=== PATIENT | female | born 1980 | race Hispanic/Latino ===

== ENCOUNTER 2019-07-08 12:11 | Day surgery (SDC) | payer OTHER ==
[2019-07-08 13:02] VITALS: TEMP 98.2; BMI 31.8
[2019-07-08 13:31] LABS: Amnisure Test No Membranes Rupture (No Rupture)
[2019-07-08 13:32] LABS: Amnisure Internal Control QC ACCEPTABLE (ACCEPTABLE)
[2019-07-08] MEDS ORDERED: hydrALAZINE 20 MG/ML VIAL SLOW IVP PRN (13:33)
--- NOTE | 2019-07-08 13:40 | PDOC.LDHP ---
Labor and Delivery H&P Chief complaint: loss of fluid HPI: 39 G1 at 21.4 here with complaint of loss of fluid at home. She notes clear thin fluid per vagina over the past few days. She endorses movement, denies bleeding, abd pain, or cxn. Fluid is associated sexual intercourse. course has been complicated only by AMA. Current gestational age (weeks): 21 (21.4) Due date: 11/14/18 Dating criteria: last menstrual period, first trimester ultrasound Grav: 1 Para: 0 Current complications: other (ama) Abnormal US findings: No Current medications: pre- vitamins Allergies/Adverse Reactions: Allergies Allergy/AdvReac Type Severity Reaction Status Date / Time No Known Allergies Allergy Verified 07/08/19 13:22 - Physical Exam Vital signs reviewed and normal: yes General: NAD Heart: RRR Lungs: CTAB Abdomen: NTTP Extremeties: no edema - OB Labs Blood type: A RH: positive Antibody Screen: negative HIV: negative RPR: negative HEPSAg: negative Rubella: immune - Assessment 2nd trimester G1 with vaginal discharge - Plan -: - Amnisure is negative. VP3, UA are pending. Plan to treat infection if indicated. - FHT are 140 on doppler - No cxn - discharge home with return precautions,. Follow up at [facility] as previously scheduled Addendum - Attending - Attending Attestation Date/Time: 07/08/192019 I personally discussed the management of the patient with Dr. Duran. I agree with the History, Examination, Assessment and Plan documented above.
[2019-07-08 17:13] LABS: Bacteria/HPF None Seen HPF (None Seen); Bilirubin Negative (Negative); Blood, Urine Negative (Negative); Clarity Clear (Clear); Glucose, Urine (Dipstick) Normal (Negative); Leukocyte Negative Leu/uL (Negative); Nitrite Negative (Negative); Protein, Urine (Dipstick) Negative (Neg-Trace); RBC/HPF 0-3 HPF (0-3); Squamous Epithelial 0-3 HPF (0-3); Transitional Epithelial 0-3 HPF (None Seen); Urobilinogen Normal mg/dL (Less than 2); WBC/HPF 0-3 HPF (0-3)
[2019-07-08 17:41] LABS: Urine Culture Reflex No No
== END 2019-07-08 14:30 | disposition home or self-care (01) ==
LOC: L&D/OP 12:11
PROVIDERS: ATTEND Family Medicine
DX: O99.89 Other specified diseases and conditions complicating pregnancy, childbirth and the puerperium (principal); N89.8 Other specified noninflammatory disorders of vagina; O09.512 Supervision of elderly primigravida, second trimester; Z3A.21 21 weeks gestation of pregnancy; Z79.82 Long term (current) use of aspirin
CPT/HCPCS: 81001; 84112; 87480; 87510; 87660

== ENCOUNTER 2019-10-25 08:10 | Inpatient (IN) | payer MEDICAID, OTHER, SELFPAY ==
--- NOTE | 2019-10-25 08:33 | PDOC.FPROB ---
FMR OB H&P: HPI - History of Present Illness Chief Complaint: IOL for gHTN Indentification: 39yo at 37.1wks by 7.3wk US History of Present Illness: 39yo at 37.1wks by 7.3wk US presents for IOL for gHTN. No BPs at home >140/ 90. Denies vaginal bleeding, LOF, contractions. Endorses FM. Primary Care Physician: Dr Yelena Wei FMR OB H&P: Current - Care : 1 Para: 0 Gestational age: 37.1wks Dating Criteria: 7.3wk US Course/Complications: LGA AMA Left Ovarian Cyst gHTN Carpal tunnel Glucose intolerance - OB Labs Blood type: A RH: positive Antibody Screen: negative HIV: negative RPR: negative HepBsAg: negative Rubella: immune Gonorrhea: negative Chlamydia: negative 1 hour gtt: 154 3 hour GTT: 79, 146, 166, 131 GBS: negative H&H: 12.3/35.4 Platelets: 255 - First Trimester Ultrasound First trimester: @7.3wks FMR OB H&P: History - Past Medical History PMH: Left ovarian cyst - Surgical History Sx History: In office nasal procedure - Social History Social History: Denies tobacco, alcohol, drug use - Family History Family History: Noncontributory FMR OB H&P: Medications - Current Home Medications: Medication Instructions Recorded Confirmed Type Aspirin [Ecotrin] 81 mg PO DAILY 07/08/19 10/25/19 History Vitamin 1 tablet PO DAILY 07/08/19 10/25/19 History Allergies/Adverse Reactions: Allergies Allergy/AdvReac Type Severity Reaction Status Date / Time No Known Allergies Allergy Verified 07/08/19 13:22 FMR OB H&P: ROS - Review of Systems General: denies: fever/chills, fatigue Eyes: denies: vision changes, double vision, scotomas, floaters Cardiovascular: denies: palpitation, edema Respiratory: denies: shortness of breath Gastrointestinal: denies: abdominal pain, nausea Genitourinary (Female): denies: vaginal discharge, vaginal bleeding, contractions Neurologic: denies: weakness, headache Integumentary: denies: rash, lesions FMR OB H&P: Vital Signs - Maternal Vital signs: Selected Entries 10/25/19 10/25/19 08:14 09:55 Temperature 99 F Pulse Rate 83 Blood Pressure 133/67 [Semi-Fowlers] Respiratory 18 Rate Oxygen Delivery Room Air Method - Heart Tones Baseline: 130 Variability: moderate Acceleration: present Deceleration: absent Category: category 1 FMR OB H&P: Physical Exam - Physical Exam General: NAD, awake, alert and oriented HEENT: normocephalic and atraumatic, MMM, conjunctiva clear, grossly normal hearing, oropharynx clear Neck: supple, trachea midline Heart: RRR, no murmurs/rubs/gallops General: CTAB, no respiratory distress Abdomen: soft, non-tender Musculoskeletal: pulses present, FROM in all four extremities, no misalignment/ asymmetry, no atrophy Neurological: no focal deficit Skin: no rash, capillary refill <2 seconds Psychiatric: intact recent and remote memory, good judgement and insight, normal mood and affect - Pelvic Exam Vulva: normal hair distribution, no lesions, no discharge SVE: c/t/h Membranes: intact Presentation: cephalic by bedside US Estimated Weight: 8 lbs FMR OB H&P: A/P Disposition: 39yo at 37.1wks by 7.3wk US presents for IOL for gHTN sIUP, IOL - s/p betamethasone x2 - SVE: c/t/h - FHTs 130 Cat 1 - Cytotec for induction gHTN - Last preE labs, Urine protein/Creatinine: 0.198 (Baseline 0.2), normal transaminases - BP 133/67 LGA infant - [place] EFW 88% --> 84% --> 94% --> 90% --> 91% --> 87% - 35.3wks EFW 3089g 87% AMA - On ASA for preE ppx. Following with MFM. ECHO WNL. Low risk NIPT Left Ovarian Cyst - Recommend removal if pt goes for C/S Carpal Tunnel - Has been wearing brace Glucose intolerance - Has been having growth scans - 6wk GTT Discussion: Date/Time: 10/25/19 0833 This H&P was discussed with Dr. Bermudez who agrees with the above documentation and plan. Addendum - Attending - Attending Attestation Date/Time: 10/25/19 1000 I personally evaluated the patient and discussed the management with Dr. Wei I agree with the History, Examination, Assessment and Plan documented above with any addition or exceptions noted below. mIOL for gHTN at 37.1 wk per MFM recommendations. s/p betamethasone x2 doses last week. BP WNL today. C/T/H. cytotec for IOL. monitor BP and mag if severe features. Has hx of left ovarian cyst. if LTCS indicated, will consult [facility] [employer] [facility] for removal. otherwise expectant management.
[2019-10-25] MEDS ORDERED: Promethazine HCl 25 MG/ML VIAL IM PRN (08:34)
[2019-10-25] MEDS ORDERED: Lidocaine 1% (PF) 30 ML VIAL SC PRN (08:34)
[2019-10-25] MEDS ORDERED: NS / Oxytocin 40 units/1000ml 1,000 ML IV PRN (08:34)
[2019-10-25] MEDS ORDERED: Ondansetron PF 4 MG/2 ML Vial IVP PRN (08:34)
[2019-10-25] MEDS ORDERED: hydrALAZINE 20 MG/ML VIAL SLOW IVP PRN (08:34)
[2019-10-25 08:43] VITALS: BMI 33.8
[2019-10-25] MEDS ORDERED: Misoprostol 100 MCG TAB VAG SCH (08:45)
[2019-10-25] MEDS: Lactated Ringer's 1,000 ML IV SCH ×2 (09:21→17:19)
[2019-10-25] MEDS ORDERED: Misoprostol 100 MCG TAB ONE (09:27)
[2019-10-25] MEDS: Misoprostol 100 MCG TAB PO SCH ×2 (09:34→13:56)
[2019-10-25 09:52] LABS: Hemoglobin 12.3 g/dL (12.0-16.0); Mean Corpuscular HGB CONC 35.4 g/dL (32.0-36.0); Mean Corpuscular Hemoglobin 32.3 pg (27.0-31.0); Mean Corpuscular Volume 91.2 fL (78.0-98.0); Mean Platelet Volume 8.3 fL (7.4-10.4); Platelet Count 247 thou/uL (130-400); RBC Distribution Width 12.3 % (11.5-14.5); White Blood Cell (WBC) Count 8.8 thou/uL (4.8-10.8)
[2019-10-25 10:31] LABS: Syphilis Antibody Nonreactive (Nonreactive); Syphilis Antibody Index 0.04 S/CO (<1.00 Non-Reactive)
[2019-10-25 10:32] LABS: HBSAg Index 0.22 S/CO (0-0.99); Hep B Surf Ag Non-Reactive S/CO (NonReactive)
[2019-10-25] MEDS ORDERED: Milk Of Magnesia 30 ML UDCUP PO PRN (10:51)
[2019-10-25] MEDS ORDERED: Docusate 100 MG CAP PO PRN (10:51)
[2019-10-25] MEDS ORDERED: Polyethylene Glycol 3350 17 GM Packet PO PRN (10:51)
--- NOTE | 2019-10-25 14:04 | PDOC.LDPN ---
Labor & Delivery Progress Note - Subjective Subjective: comfortable, no concerns - Objective Vital signs reviewed and normal: yes General: NAD, resting SVE: /-3, midposition, moderately firm Dilation: 1 Effacement: 50% Station: -3 FHT: category 1, variability present (moderate, + accels) [place] contractions every: 2-5 min - Assessment (1) Term Code(s): Z34.90 - ENCNTR FOR SUPRVSN OF NORMAL , UNSP, UNSP TRIMESTER Current Visit: Yes Status: Acute Plan: continue plan of care -: /-3 2nd dose of PO cytotec given Daniels score of 4 continue to monitor continuous EFM/toco discussed R/B/A of induction and w/ family Clear liquid diet recheck in 3-4 hours
--- NOTE | 2019-10-25 17:34 | PDOC.LDPN ---
Labor & Delivery Progress Note - Subjective Subjective: comfortable, no concerns - Objective Vital signs reviewed and normal: yes General: NAD, resting SVE: 2/75/-2, soft mid position FHT: category 1, variability present (moderate, multiple accels) - Assessment (1) Term Code(s): Z34.90 - ENCNTR FOR SUPRVSN OF NORMAL , UNSP, UNSP TRIMESTER Current Visit: Yes Status: Acute Plan: continue plan of care, pitocin for augmentation -: continue expectant mgmt Daniels of 7. Will begin pitocin. Verified w/ Dr. Camarillo. pt desires epidural as she progresses. Is comfortable now.
[2019-10-25] MEDS: NS w/ Oxytocin 10 units 500 ML IV SCH (17:57)
--- NOTE | 2019-10-25 22:06 | PDOC.LDPN ---
Labor & Delivery Progress Note - Subjective Subjective: comfortable, vaginal pressure - Objective Vital signs reviewed and normal: yes General: NAD, breathing through contractions Dilation: 2 cm Effacement: 75% Station: -2 FHT: category 1 [place] contractions every: q 3-4 mins Plan: continue plan of care, pitocin for augmentation -: Pt is a 39 yo at 37 wks by 7.3 wk sono who presents for IOL, gHTN: # Term , IOL, LGA Infant 2 cm/50%/-2 No change from previous check. Continue pitocin, currently at 4, previously received 2 doses of cytotec. Pt is appreciating contractions in pelvis. No ROM , vaginal bleeding, discharge. GBS negative. - Recheck in 2 hours
--- NOTE | 2019-10-25 22:08 | PDOC.LDPN ---
Labor & Delivery Progress Note - Subjective Subjective: painful contractions, vaginal pressure, no concerns - Objective Vital signs reviewed and normal: yes General: resting, breathing through contractions Dilation: 2 cm Effacement: 50% Station: -2 FHT: category 1 [place] contractions every: q4mins Plan: continue plan of care, pitocin for augmentation -: Pt is a 39 yo at 37 wks by 7.3 wk sono who presents for IOL, gHTN: # Term , IOL, LGA Infant 2 cm/50%/-2 No change from previous check. Continue pitocin, currently at 6, previously received 2 doses of cytotec. Pt is appreciating contractions in pelvis. No ROM , vaginal bleeding, discharge. GBS negative. - Recheck in 2 hours
--- NOTE | 2019-10-26 01:37 | PDOC.LDPN ---
Labor & Delivery Progress Note - Subjective Subjective: comfortable, vaginal pressure, no concerns - Objective Vital signs reviewed and normal: yes General: NAD, resting Uterine fundus: non tender Dilation: 2 cm Effacement: 50% Station: -2 FHT: category 1 [place] contractions every: q3-4min Plan: continue plan of care, pitocin for augmentation -: Pt is a 39 yo at 37 wks by 7.3 wk sono who presents for IOL, gHTN: # Term , IOL, LGA Infant 2 cm/50%/-2 No change from previous check. D/C pitocin, have pt walk. Will recheck and consider a cytotec placement. Pt is appreciating contractions in pelvis. No ROM, vaginal bleeding, discharge. GBS negative.
--- NOTE | 2019-10-26 01:37 | PDOC.LDPN ---
Labor & Delivery Progress Note - Subjective Subjective: vaginal pressure - Objective General: NAD, resting, breathing through contractions Dilation: 2 cm Effacement: 50% Station: -2 FHT: category 1 [place] contractions every: q3 mins Plan: continue plan of care, pitocin for augmentation -: Pt is a 39 yo at 37 wks by 7.3 wk sono who presents for IOL, gHTN: # Term , IOL, LGA Infant 2 cm/50%/-2 No change from previous check. Continue pitocin, previously received 2 doses of cytotec. Pt is appreciating contractions in pelvis. No ROM, vaginal bleeding, discharge. GBS negative. - Recheck in 2 hours - Consider d/c pitocin, administer cytotec if no change on 0 check
[2019-10-26] MEDS: NS w/ Oxytocin 10 units 500 ML IV SCH ×2 (03:31→16:50)
[2019-10-26] MEDS: Lactated Ringer's 1,000 ML IV SCH ×3 (03:31→16:37)
[2019-10-26] MEDS: Misoprostol 100 MCG TAB PO SCH ×2 (03:52→11:22)
--- NOTE | 2019-10-26 10:10 | PDOC.LDPN ---
Labor & Delivery Progress Note - Subjective Subjective: comfortable, no concerns - Objective Vital signs reviewed and normal: yes General: NAD, resting SVE: 2/50/-2 Dilation: 2 Effacement: 50% Station: -2 FHT: category 1, variability present (moderate, accels ) - Assessment (1) Term Code(s): Z34.90 - ENCNTR FOR SUPRVSN OF NORMAL , UNSP, UNSP TRIMESTER Current Visit: Yes Status: Acute Plan: continue plan of care -: medications stopped due to frequent contractions overnight balloon placed, pt has not made change from 2 cm overnight Will wait until balloons fall out. Continue expectant mgmt. Addendum - Attending - Attending Attestation Date/Time: 10/26/19 1123 I personally evaluated the patient and discussed the management with Dr. Barkley I agree with the History, Examination, Assessment and Plan documented above with any addition or exceptions noted below. recheck 4 hrs. balloon in at 1000.
[2019-10-26] MEDS ORDERED: Butorphanol Tartrate 1 MG/ML VIAL SLOW IVP PRN (11:16)
[2019-10-26] MEDS ORDERED: Butorphanol Tartrate 1 MG/ML VIAL ONE (11:17)
[2019-10-26] MEDS: Misoprostol 100 MCG TAB VAG SCH (11:22)
[2019-10-26] MEDS ORDERED: Fentanyl 4 mcg/Bup 0.1% Cadd 100 ML ONE ×2 (12:55→21:48)
[2019-10-26] MEDS: Fentanyl 4 mcg/Bupivacaine 0.1% Cassette 100 ML EPIDURAL SCH ×2 (13:00→21:53)
[2019-10-26] MEDS ORDERED: Naloxone HCl 0.4 mg/ml Vial IVP PRN ×2 (13:35)
[2019-10-26] MEDS ORDERED: ePHEDrine/0.9% NaCl/PF SYRINGE 50 mg/10 ml SLOW IVP PRN (13:35)
[2019-10-26] MEDS ORDERED: Promethazine HCl 25 MG/ML VIAL IM PRN (13:35)
[2019-10-26] MEDS ORDERED: Lactated Ringer's 500 ML IV PRN (13:35)
[2019-10-26] MEDS ORDERED: Ondansetron PF 4 MG/2 ML Vial IVP PRN (13:35)
[2019-10-26] MEDS ORDERED: diphenhydrAMINE 50 MG/ML VIAL IVP PRN (13:35)
--- NOTE | 2019-10-26 13:36 | PDOC.LDPN ---
Labor & Delivery Progress Note - Subjective Subjective: painful contractions, vaginal pressure - Objective Vital signs reviewed and normal: yes Abnormal vital signs: 1240 BP 163/85, most recent 1332 120/69 General: breathing through contractions SVE: balloon in place FHT: category 1 [place] contractions every: q1-2min Plan: continue plan of care -: 39yo at 37.0w by 7.3w US here for mIOL for gHTN and LGA fetus. Pt with painful ctx q1-2min. Currently getting epidural for pain management. Cooks balloon in place, continue q4h checks. Did have one severe range BP, and others that were elevated to 140's, most recent 120/69. Will get CBC, CMP, Urine Pro/Cr. Hydralazine prn. Will monitor closely for need for Magnesium.
[2019-10-26] MEDS ORDERED: Communication Order-Pharmacy FS PRN (13:45)
[2019-10-26 14:21] LABS: #Lymphocytes 1.5 thou/uL (1.20-3.40); #Monocytes 0.9 thou/uL (0.11-0.59); %Basophils 0.1 % (0.0-1.0); %Eosinophils 0.2 % (0.0-10.0); %Monocytes 7.6 % (0.0-10.0); %Neutrophils 79.1 % (42.0-75.0); Hemoglobin 12.8 g/dL (12.0-16.0); Mean Corpuscular Hemoglobin 31.5 pg (27.0-31.0); Mean Corpuscular Volume 92.6 fL (78.0-98.0); Mean Platelet Volume 7.8 fL (7.4-10.4); Platelet Count 249 thou/uL (130-400); RBC Distribution Width 12.4 % (11.5-14.5); Red Blood Cell (RBC) Count 4.06 mill/uL (4.20-5.40); White Blood Cell (WBC) Count 11.4 thou/uL (4.8-10.8)
[2019-10-26 14:50] LABS: ALT (SGPT) 14 U/L (8-55); AST (SGOT) 13 U/L (5-34); Albumin 3.5 g/dL (3.5-5.0); Alkaline Phosphatase 126 U/L (40-110); Anion Gap 11 mmol/L (10-20); BUN (Urea Nitrogen) 5 mg/dL (7.0-18.7); Bilirubin, Total 0.5 mg/dL (0.2-1.2); Calc. Creatinine Clearance 189 mL/min (70-130); Carbon Dioxide 24 mmol/L (22-29); Chloride 105 mmol/L (98-107); Estimated GFR-MDRD Greater than 90; Globulin 2.7 g/dL (2.4-3.5); Glucose 94 mg/dL (70-105); Potassium 3.7 mmol/L (3.5-5.1); Protein, Total 6.2 g/dL (6.0-8.3); Sodium 136 mmol/L (136-145)
[2019-10-26 16:37] LABS: Creatinine, Urine 42.98 mg/dL (47-110)
--- NOTE | 2019-10-26 16:52 | PDOC.LDPN ---
Labor & Delivery Progress Note - Subjective Subjective: comfortable - Objective Vital signs reviewed and normal: yes General: NAD, resting Uterine fundus: non tender Dilation: 3 Effacement: 75% Station: -3 FHT: category 1 (130/mod/+ accels/no decels) [place] contractions every: 3-5min -: 39yo at 37.2wk by 7.3w US here for mIOL for gHTN and LGA fetus. - Contractions have slowed down will restart pit. - Comfortable with epidural - Cooks balloon in place, continue q4h checks - SVE: /-3 Preeclampsia without severe features - Bloodwork unremarkable but Urine protein/Creatinine now 0.302 - Severe range prior x1 prior to blood draw, BPs now well controlled after epidural - Currently with headache, Tylenol PRN - If another severe range pressure will start Mg.
[2019-10-26] MEDS: Acetaminophen 325 MG TAB PO PRN (16:58)
[2019-10-26] MEDS ORDERED: Acetaminophen 500 MG TAB PO SCH (17:00)
--- NOTE | 2019-10-26 23:06 | PDOC.LDPN ---
Labor & Delivery Progress Note - Subjective Subjective: comfortable, no concerns - Objective Vital signs reviewed and normal: yes General: NAD, resting Uterine fundus: non tender Dilation: 6 cm Effacement: 50% Station: -3 FHT: category 1 [place] contractions every: q 3 mins Plan: continue plan of care, pitocin for augmentation -: Pt is a 39 yo at 37 weeks by 7.3 wk sono presented for IOL for gHTN: # IOL 2/2 gHTN Pt had one elevated BP but currently at SBP 120's. 6 cm/50/-3. Balloon removed after 12 h ours. Cat 1 strip, FHT's 130, moderate variability, accelerations present. Not feeling contractions with epidural, contractions q3mins. Pit at 6. - continue current care, recheck in 2 hours
--- NOTE | 2019-10-27 00:06 | PDOC.LDPN ---
Labor & Delivery Progress Note - Subjective Subjective: comfortable, vaginal pressure - Objective Vital signs reviewed and normal: yes General: NAD, resting Dilation: 6.5 cm Effacement: 50% Station: -2 FHT: category 1 Plan: continue plan of care, pitocin for augmentation -: Pt is a 39 yo at 37.2 weeks by 7.3 wk adrienne presented for IOL for gHTN: # IOL 2/2 gHTN Pt had one elevated BP but currently at SBP 120's. 6.5 cm/50/-3. Cat 1 strip, FHT's 130, moderate variability, accelerations present. Not feeling contractions with epidural, contractions q3mins. Pit at 10. - continue current care, recheck in 2 hours - position changes
--- NOTE | 2019-10-27 02:34 | PDOC.LDPN ---
Labor & Delivery Progress Note - Subjective Subjective: comfortable, vaginal pressure - Objective Vital signs reviewed and normal: yes (SBP 130) General: NAD, resting Uterine fundus: non tender Dilation: 6.5 cm Effacement: 50% Station: -2 FHT: category 1 [place] contractions every: q2mins Plan: continue plan of care, pitocin for augmentation -: Pt is a 39 yo at 37.2 weeks by 7.3 wk sono presented for IOL for gHTN: # IOL 2/2 gHTN SROM at 0225 10/27/18 Pt had one elevated BP but currently at SBP 130's. 6.5 cm/50/-2. Cat 1 strip, FHT's 130, moderate variability, accelerations present. Not feeling contractions with epidural, contractions q2mins. Pit at 14. - continue current care, recheck in 2 hours; consider IUPC placement - position changes Vargas Perdue, DO
[2019-10-27] MEDS ORDERED: Fentanyl 4 mcg/Bup 0.1% Cadd 100 ML ONE (05:27)
[2019-10-27] MEDS: Fentanyl 4 mcg/Bupivacaine 0.1% Cassette 100 ML EPIDURAL SCH (05:30)
--- NOTE | 2019-10-27 07:26 | PDOC.LDPN ---
Labor & Delivery Progress Note - Subjective Subjective: painful contractions - Objective Vital signs reviewed and normal: yes General: NAD Uterine fundus: palpable contractions Dilation: 9 Effacement: 90% Station: 0 FHT: category 1 [place] contractions every: q2-3 min Plan: continue plan of care -: Pt is a 39 yo at 37.2 weeks by 7.3 wk sono presented for IOL for gHTN and LGA fetus: SROM at 0225 10/27/18 Pt had one elevated BP but currently at SBP 120's. 9/90/0. Cat 1 strip, FHT's 130, moderate variability, accelerations present. Continue current care, recheck in 2 hours
--- NOTE | 2019-10-27 08:20 | PDOC.LDPN ---
Labor & Delivery Progress Note - Objective Dilation: 6 Station: 0 FHT: category 1 Plan: continue plan of care, pitocin for augmentation -: Pt is a 39 yo at 37.2 weeks by 7.3 wk sono presented for IOL for gHTN: # IOL 2/2 gHTN SROM at 0225 10/27/18 Pt had one elevated BP but currently at SBP 130's. 6 cm/80/0. Cat 1 strip. - Continue current care. Vargas Perdue DO
[2019-10-27] MEDS: Lactated Ringer's 1,000 ML IV SCH ×2 (09:35→10:23)
[2019-10-27] MEDS ORDERED: Labetalol HCl 100 MG/20 ML VIAL ONE (10:29)
[2019-10-27] MEDS ORDERED: Labetalol HCl 100 MG/20 ML VIAL SLOW IVP SCH ×2 (10:30)
[2019-10-27] MEDS ORDERED: Acetaminophen 325 MG TAB PO SCH (10:30)
[2019-10-27] MEDS ORDERED: Magnesium 2 GM/50 ML 2 GM in Premix Bag 1 BAG IVPB SCH (10:30)
--- NOTE | 2019-10-27 10:31 | PDOC.BPN ---
<Emily Barkley - Last Filed: 10/27/19 10:28> - Brief Progress Note Received page from GEETHA Vera. Pt w/ 2 severe range BP in a row. This occurred last night and Pr/Cr 0.3. Also had temp of 102.5 F. strip tachycardic 170 bpm. Pt feeling pressure, check was anterior lip/0 station. Will start Magnesium IV. Start ampicillin and gentimicin for chorioamnionitis. Give labetalol 20mg IVP now for BP. Give Tylenol 650mg PO. <Salazar Bermudez W - Last Filed: 10/27/19 10:46> - Brief Progress Note 2 severe BP. Give IV labetalol, start mag. Fever 102F w/ tachycardia. Start Amp, Gent. Will hopefully delivery soon. Case proctored by Dr. Martinez Lopez for Pre-eclampsia management.
[2019-10-27] MEDS ORDERED: Calcium Gluc 4.6 MEQ/10 ML (100 MG/ML) SLOW IVP PRN (10:32)
[2019-10-27] MEDS: Acetaminophen 325 MG TAB PO PRN (10:33)
[2019-10-27] MEDS ORDERED: Magnesium Sulfate 20 GM/WATER 500 ML BAG IVPB SCH (10:45)
[2019-10-27] MEDS ORDERED: Bupivacaine 0.25% 10 ML VIAL ONE (11:32)
[2019-10-27] MEDS: Ampicillin 2 GM in Sodium Chloride 0.9% 100 ML IVPB SCH ×3 (11:43→23:53)
[2019-10-27] MEDS ORDERED: Misoprostol 200 MCG TAB ONE (12:05)
[2019-10-27] MEDS ORDERED: Carboprost 250 MCG/ML AMP ONE (12:05)
[2019-10-27] MEDS ORDERED: Methylergonovine 0.2 MG/ML VIAL ONE (12:05)
--- NOTE | 2019-10-27 12:22 | PDOC.BPN ---
- Brief Progress Note Asked by Dr. Bermudez to marx re: pre-E with severe features 39 y/o @ 37w here for IOL 2/2 gHTN who has developed multiple severe pressures and now triple I. She is on magnesium, amp/gent, and was most recently AL. Discussed current plan with Dr. Bermudez and I agree.
[2019-10-27] MEDS: Gentamicin Sulfate 320 MG in Sodium Chloride 0.9% 100 ML IVPB SCH (12:50)
[2019-10-27] MEDS ORDERED: Milk Of Magnesia 30 ML UDCUP PO PRN (13:13)
[2019-10-27] MEDS ORDERED: Preparation H Ointment 28 GM TUBE PR PRN (13:13)
[2019-10-27] MEDS ORDERED: Bisacodyl 10 MG SUPP PR PRN (13:13)
[2019-10-27] MEDS ORDERED: Benzocaine-Menthol 82.5 ML CAN TOP PRN (13:13)
[2019-10-27] MEDS ORDERED: hydrALAZINE 20 MG/ML VIAL SLOW IVP PRN (13:13)
[2019-10-27] MEDS ORDERED: Lanolin Ointment 7 GM TUBE TOP PRN (13:13)
[2019-10-27] MEDS: NS / Oxytocin 40 units/1000ml 1,000 ML IV SCH ×2 (13:30→23:59)
--- NOTE | 2019-10-27 15:52 | PDOC.BPN ---
- Brief Progress Note Magnesium Check Pt feeling well. Asymptomatic. On Magnesium drip. DTRs: 2+ upper and lower extremities. No clonus. BP: max of 147/71 one time. UOP: 600/575/575/400 per hour over last 4 hours. Adequate. Plan: continue magnesium drip. Check in 4 hours ~20:00.
[2019-10-27] MEDS: Ibuprofen 800 MG TAB PO SCH ×2 (16:39→23:54)
--- NOTE | 2019-10-27 21:01 | OP ---
DATE OF PROCEDURE: 10/27/2019 PROCEDURE: Spontaneous vaginal delivery. DELIVERING RESIDENTS: Dr. Snider, Dr. Barkley. ATTENDING: Dr. Bermudez, present for the entirety of the delivery. ANESTHESIA: Epidural QBL: 330 mL PREOPERATIVE DIAGNOSES: 1. Term intrauterine at 37 weeks, who presents for induction of labor for gestational hypertension. 2. LGA infant. 3. Advanced maternal age. 4. Left ovarian cyst. 5. Gestational hypertension. 6. Glucose intolerance. POSTOPERATIVE DIAGNOSES: 1. Term intrauterine delivered. 2. Chorioamnionitis. 3. LGA . 4. Advanced maternal age. 5. Left ovarian cyst. 6. Gestational hypertension with superimposed preeclampsia 7. Glucose intolerance. INDICATIONS FOR PROCEDURE: A 39-year-old, G1, P0, at 37 weeks by 7.3 week ultrasound, presents for medical induction of labor for gestational hypertension. DESCRIPTION OF PROCEDURE: A 39-year-old G1, P0, at 37 weeks delivered the viable male at 12:35 on 10/27/2019. Antepartum course was complicated by intrapartum fever of 102.5 Fahrenheit, development of preeclampsia with 3 severe range blood pressures. Intrapartum ampicillin, gentamicin and magnesium were started just prior to delivery. Labetalol was given for blood pressure control and Tylenol was given for intrapartum fever. Following this antepartum course, a vigorous male was delivered over an intact perineum in occipitoanterior position. There was no nuchal cord. Anterior shoulder and remainder of the body delivered. Delayed cord clamping was performed and then cord was cut and clamped. Cord blood was collected. Placenta delivered intact in [place] presentation with a 3 vessel cord noted. Fundal massage was performed and the fundus was firm. Cervix and vagina were inspected and found to have a second-degree perineal laceration, which was repaired with 3-0 Vicryl suture in the usual fashion. There was noted to be bilateral periurethral abrasions, which were hemostatic and did not require repair. The infant went on skin to skin with mom. Apgars were 8 and 9 at 1 and 5 minutes respectively. The patient tolerated the procedure well and stayed on Labor and Delivery Unit for magnesium following recovery. Emily Barkley MD PGY1 ATTENDING ADDENDUM: I was present for delivery and agree with above documentation. patient had mIOL for gHTN. Converted to pre-eclampsia on day 1 of IOL and developed severe range BP on day 2. Suspected IAI. with 2nd degree lac. Mom stated on L&D for PP mag. Baby to well nursery on Abx due to sepsis risk. Job ID: [id number] MTDD
--- NOTE | 2019-10-27 21:08 | PDOC.BPN ---
- Brief Progress Note Magnesium Check S: Pt denies H/A, vision change, RUQ pain, SOB. She reports abdominal pain during fundal massage O: BP mostly normal or mild range, no severe range in past 4 hours UOP: 400-500mL/hr 2+ reflexes No clonus RRR, CTAB A/P: 1. Preeclampsia with Severe Features -Cont Mag -Mag checks q4h -Clear liquids -Strict I/O's -Monitor BP
[2019-10-27] MEDS: Magnesium Sulfate 20 GM in Dextrose 5% in Water 460 ML IV SCH (21:10)
--- NOTE | 2019-10-28 01:20 | PDOC.BPN ---
- Brief Progress Note Magnesium Check S: Patient was Citizen [place] only, but was able to converse well with the provider. Patient denied any JAIME, changes in vision, RUQ pain or SOB. She demonstrated appropriate pain response during fundal massage, but specifically denied TTP in the RUQ. Her only complaint at the time of evaluation was mild flushing, likely secondary to the Mg infusion. O: No severe-range BPs since last Mg Check, with most elevated reading at 132/65 UOP: ~350 ml of clear urine present in [place] collection NCAT w/ eyes PERRL CTAB RRR NBS w/ mild TTP during Fundal Massage +2 Patellar Reflexes No appreciable LE edema A/P: 1. Preeclampsia with Severe Features -Continue Mg Infusion -Mg Checks Q4H -Continue Clear Liquid Diet -Strict I/O's -Monitor BP
--- NOTE | 2019-10-28 05:13 | PDOC.BPN ---
- Brief Progress Note Magnesium Check - 10/28/19 @ 0500 S: Patient was English only, but was able to converse well with the provider. Patient denied any JAIME, changes in vision, RUQ pain, SOB, or N/V. She demonstrated appropriate pain response during fundal massage, but specifically denied TTP in the RUQ. Patient did not offer any complaints O: No severe-range BPs since last Mg Check, with most elevated reading at 123/63 UOP: ~200 ml of clear urine present in [place] collection during 0500 nursing check NCAT w/ eyes PERRL CTAB RRR NBS w/ mild TTP during Fundal Massage +2 Patellar Reflexes No appreciable LE edema A/P: 1. Preeclampsia with Severe Features -Continue Mg Infusion -Mg Checks Q4H -Continue Clear Liquid Diet -Strict I/O's -Monitor BP
[2019-10-28] MEDS: Ampicillin 2 GM in Sodium Chloride 0.9% 100 ML IVPB SCH ×2 (05:56→11:58)
[2019-10-28] MEDS: Magnesium Sulfate 20 GM in Dextrose 5% in Water 460 ML IV SCH (07:28)
--- NOTE | 2019-10-28 07:39 | PDOC.PP ---
Post Progress Note Post Day #: 1 Subjective: Pain is well controlled. She is currently on Mg and Abx. Due to stop at 1235. Reports moderate amt of lochia. Attempting to breastfeed but having difficulty with latch, has not been by to see her yet. She is not ambulatory due to mag. Denies fevers, chills. PO intake tolerated: yes Flatus: no Ambulation: no Weight Weight 83.915 kg - Physical Examination General: NAD Cardiovascular: no m/r/g, RRR Respiratory: clear to auscultation bilaterally, non-labored breathing Abdominal: + bowel sounds, lochia, appropriately TTP Fundus firm & at: umbilicus Skin: no rash Neurological: no gross focal deficits Deviation from normal: bilateral patellar reflexes 2+ Psychiatric: A&Ox3, normal affect Result Diagrams: 10/26/19 14:12 10/26/19 14:12 Additional Labs: Post Labs Blood Type A POSITIVE 10/25/19 11:10 Hep Bs Antigen Non-Reactive S/CO (NonReactive) 10/25/19 09:31 - Assessment/Plan sIUP, IOL for gHTN, delivered - Meeting PP milestones - Encourage ambulation later today once able. Pain well controlled. Ch[place] - Continue Abx until 1235 this afternoon - No fever overnight. PreEclampsia - Mg until 1235 this afternoon - Adequate urine output. Reflexes 2+. - Continue clear liquid diet and strict bedrest Left Ovarian Cyst Carpal Tunnel Glucose intolerance - 6wk GTT Addendum - Attending - Attending Attestation Date/Time: 10/28/19 1201 I personally evaluated the patient and discussed the management with Dr. Wei I agree with the History, Examination, Assessment and Plan documented above with any addition or exceptions noted below. Continue IV mg and abx until 24 hr PP. BP WNL. Will transfer to PP after off mag. Routine care otherwise.
[2019-10-28] MEDS: Prenatal Vitamin 1 TAB PO SCH (10:34)
[2019-10-28] MEDS: Ferrous Sulfate 325 MG TAB PO SCH ×2 (10:34→17:05)
[2019-10-28] MEDS: Docusate Calcium (SURFAK) 240 MG CAP PO SCH ×2 (10:34→19:51)
[2019-10-28] MEDS: Lactated Ringer's 1,000 ML IV SCH (10:34)
[2019-10-28] MEDS: Ibuprofen 800 MG TAB PO SCH ×3 (10:38→17:58)
[2019-10-28] MEDS: Gentamicin Sulfate 320 MG in Sodium Chloride 0.9% 100 ML IVPB SCH (12:49)
[2019-10-28] MEDS ORDERED: Adacel (T-DAP) 0.5 ML SYRINGE IM ONE (13:13)
[2019-10-28] MEDS: NS w/ Oxytocin 10 units 500 ML IV SCH (17:08)
[2019-10-28] MEDS: Acetaminophen 325 MG TAB PO PRN (19:50)
[2019-10-29] MEDS: Ibuprofen 800 MG TAB PO SCH ×3 (04:04→22:35)
--- NOTE | 2019-10-29 05:20 | PDOC.OBPPN ---
FMR OB PN: Subj - Interval History Hospital Day: 5 Day: 2 Chief Complaint: PP Indentification: 39yo delivered TAGA M at 37w via on 10/27 at 1235 Interval History: Complains of JAIME but otherwise reports normal lochia and PP pain. FMR OB PN: Obj - Maternal Vital signs: BP: 124/66 HR: 76 RR: 15 Tmax: 97.8 Pox: 96% on RA - Urine output I&O: 10/27/19 10/28/19 10/29/19 06:59 06:59 06:59 Output Total 480 Balance -480 - Lochia Lochia: minimal - Pain Management Intervention: oral medication FMR OB PN: Exam - Physical Exam General: NAD, awake, alert and oriented HEENT: normocephalic and atraumatic, grossly normal vision, grossly normal hearing Heart: RRR, no edema Deviation from normal: 2/6 systolic murmur General: CTAB, no respiratory distress, good air movement, no wheezing Abdomen: soft, fundus(cm) (2cm below), non-tender Skin: no rash : appropriately tender FMR OB PN: A/P - Problem List (1) Term delivered Current Visit: Yes Status: Acute Code(s): O80 - ENCOUNTER FOR FULL-TERM UNCOMPLICATED DELIVERY (2) Chorioamnionitis Current Visit: Yes Status: Acute Code(s): O41.1290 - CHORIOAMNIONITIS, UNSP TRIMESTER, NOT APPLICABLE OR UNSP (3) Preeclampsia Current Visit: Yes Status: Acute Code(s): O14.90 - UNSPECIFIED PRE-ECLAMPSIA , UNSPECIFIED TRIMESTER (4) Term Current Visit: Yes Status: Acute Code(s): Z34.90 - ENCNTR FOR SUPRVSN OF NORMAL , UNSP, UNSP TRIMESTER Disposition: 39yo delivered 10/27 at 1235 via , developed PreE and IAI, PP day#2: -breast and bottle feeding well, no milk yet- has seen pt. Continue with breast pump. -Continue Motrin and Tylenol for PP pain. -Lochia scant -likely d/c tomorrow. PreEclampsia: -off Mg now for 20h -complains of JAIME, BP's wnl. Will monitor for 1 more day and plan d/c tomorrow IAI: -off Abx for 20h -no fevers, abd appropriately tender. Monitor for 1 more day. Discussion: Date/Time: 10/29/19 0520 This H&P was discussed with [] and [] who agree with the above documentation and plan. Addendum - Attending - Attending Attestation Date/Time: 10/29/19 1515 I personally evaluated the patient and discussed the management with Dr. Hollingsworth I agree with the History, Examination, Assessment and Plan documented above with any addition or exceptions noted below. 39 yo female s/p on 10/27/19 at 1235 PPD# 2 Patient with complaint of headached. BP stable. No other symptoms. Breast feeding. Lochia minimal. Pain controlled. 1. s/p : Routine pp care. 2. Breast feeding: Continue PNV. 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 Follow up with [facility] office. Discussed breast pump as needed. 3. AMA 4. gHTN now with preE with severe features: Severe range BP with proteinuria. Off mag less than 24 hours. Will continue to monitor BP and symptoms throughout the day. Likely home in AM. Follow up with [facility] next week for BP check. 5. IAI: No path available. Received antibx x 24 hours. No s/sx of continue infection. Afebrile. doing well. 6. Left ovarian cyst: Follow up 6 pp TVUS. 7. BMI 34 ABrayMD
[2019-10-29] MEDS: Ferrous Sulfate 325 MG TAB PO SCH ×2 (08:18→18:33)
[2019-10-29] MEDS: Docusate Calcium (SURFAK) 240 MG CAP PO SCH ×2 (08:20→22:35)
[2019-10-29] MEDS: Prenatal Vitamin 1 TAB PO SCH (08:20)
[2019-10-29] MEDS ORDERED: diphenhydrAMINE 25 MG CAP PO SCH (10:00)
[2019-10-29] MEDS ORDERED: Acetaminophen 325 MG TAB PO SCH (10:00)
[2019-10-29] MEDS: NS w/ Oxytocin 10 units 500 ML IV SCH (18:33)
[2019-10-29] MEDS: Acetaminophen 325 MG TAB PO PRN (22:35)
[2019-10-29] MEDS: diphenhydrAMINE 25 MG CAP PO PRN (22:37)
[2019-10-30] MEDS: Ibuprofen 800 MG TAB PO SCH ×2 (06:40→14:40)
--- NOTE | 2019-10-30 08:14 | PDOC.OBPPN ---
FMR OB PN: Subj - Interval History Hospital Day: 6 Day: 3 Chief Complaint: PP Indentification: 39yo delivered TAGA M at 37w via on 10/27 at 1235 Interval History: JAIME resolved, PP pain tolerable, no severe range pressures overnight FMR OB PN: Obj - Maternal Vital signs: BP: 143/81 HR: 79 RR: 18 Tmax: 97.8 Pox: 98% on RA - Lochia Lochia: scant - Pain Management Intervention: oral medication FMR OB PN: Exam - Physical Exam General: NAD, awake, alert and oriented Heart: no edema General: no respiratory distress Abdomen: soft, fundus(cm) (2cm below) Musculoskeletal: normal gait and station FMR OB PN: A/P - Problem List (1) Term delivered Status: Acute Code(s): O80 - ENCOUNTER FOR FULL-TERM UNCOMPLICATED DELIVERY (2) Chorioamnionitis Status: Acute Code(s): O41.1290 - CHORIOAMNIONITIS, UNSP TRIMESTER, NOT APPLICABLE OR UNSP (3) Preeclampsia Status: Acute Code(s): O14.90 - UNSPECIFIED PRE-ECLAMPSIA, UNSPECIFIED TRIMESTER (4) Term Status: Acute Code(s): Z34.90 - ENCNTR FOR SUPRVSN OF NORMAL , UNSP, UNSP TRIMESTER Disposition: 39yo delivered 10/27 at 1235 via , developed PreE and IAI, PP day#3: -breast and bottle feeding well, supplementing with formula but reports milk is coming in- has seen pt. Continue with breast pump. -Continue Motrin and Tylenol for PP pain. -Lochia scant PreEclampsia: -off Mg now for 40h -JAIME resolved, BP's elevated but not severe range. If continues to have elevated pressures, plan to start PO Procardia. Will monitor over the afternoon and likely d/c today. IAI: -off Abx for 40h -no fevers, abd appropriately tender. Discussion: Date/Time: 10/30/19813 This H&P was discussed with Dr. Arellano who agree with the above documentation and plan. Signature: Yoselyn Hollingsworth DO 10/30/19 Addendum - Attending - Attending Attestation Date/Time: 10/30/192054 I personally evaluated the patient and discussed the management with Dr. Hollingsworth I agree with the History, Examination, Assessment and Plan documented above with any addition or exceptions noted below. Patient doing well. No acute changes. Occasional elevated BP but asymptomatic. Pain controlled. Lochia mild. Ok to d/c to home. [place]
[2019-10-30] MEDS: Ferrous Sulfate 325 MG TAB PO SCH (09:04)
[2019-10-30] MEDS: Docusate Calcium (SURFAK) 240 MG CAP PO SCH (09:05)
[2019-10-30] MEDS: Prenatal Vitamin 1 TAB PO SCH (09:05)
[2019-10-30] MEDS: diphenhydrAMINE 25 MG CAP PO PRN (09:05)
[2019-10-30] MEDS: Acetaminophen 325 MG TAB PO PRN (09:06)
[2019-10-30 16:48] VITALS: BP 141/67; TEMP 97.6
[2019-10-31] MEDS ORDERED: NIFEdipine XL 30 MG TAB PO SCH (09:00)
== END 2019-10-30 19:45 | disposition home or self-care (01) | DRG 805 ==
LOC: L&D 08:10 → 3SW 10-28 15:24 → EDSTATUS 11-02 16:08
PROVIDERS: ADMIT Family Medicine; ATTEND Family Medicine
PROC: 3E0P7VZ Introduction of Hormone into Female Reproductive, Via Natural or Artificial Opening (ICD-10-PCS; 2019-10-25)
PROC: 0U7C7ZZ Dilation of Cervix, Via Natural or Artificial Opening (ICD-10-PCS; 2019-10-26)
PROC: 10E0XZZ Delivery of Products of Conception, External Approach (ICD-10-PCS; principal; 2019-10-27)
PROC: 0KQM0ZZ Repair Perineum Muscle, Open Approach (ICD-10-PCS; 2019-10-27)
DX: O13.4 Gestational [pregnancy-induced] hypertension without significant proteinuria, complicating childbirth (principal); O41.1230 Chorioamnionitis, third trimester, not applicable or unspecified; Z37.0 Single live birth; Z3A.37 37 weeks gestation of pregnancy; O36.63X0 Maternal care for excessive fetal growth, third trimester, not applicable or unspecified; O34.83 Maternal care for other abnormalities of pelvic organs, third trimester; N83.202 Unspecified ovarian cyst, left side; G56.00 Carpal tunnel syndrome, unspecified upper limb; O99.353 Diseases of the nervous system complicating pregnancy, third trimester; E74.39 Other disorders of intestinal carbohydrate absorption; O99.810 Abnormal glucose complicating pregnancy; O14.14 Severe pre-eclampsia complicating childbirth; O70.1 Second degree perineal laceration during delivery
CPT/HCPCS: 36415; 51702; 80053; 82570; 83735; 84156; 85025; 85027; 86780; 86850; 86900; 86901; 87340; 88307; C1726; J0290; J0595; J1580; J2210; J2590; J3475; J3490; J7070; Q0163; S0020

== ENCOUNTER 2024-10-23 06:16 | Emergency (ER) | payer OTHER, SELFPAY ==
[2024-10-23 06:58] LABS: #Basophils 0.05 10x3/uL (0.0-0.2); %Basophils 0.7 % (0.0-1.0); %Eosinophils 0.5 % (0.0-10.0); %Lymphocytes 35.3 % (21.0-51.0); %Monocytes 6.6 % (0.0-10.0); %Neutrophils 56.6 % (42.0-75.0); Hematocrit 37.8 % (36.0-47.0); Hemoglobin 12.5 g/dL (12.0-16.0); Mean Corpuscular HGB CONC 33.1 g/dL (32.0-36.0); Mean Corpuscular Hemoglobin 29.6 pg (27.0-31.0); Mean Corpuscular Volume 89.4 fL (78.0-98.0); Mean Platelet Volume 9.7 fL (7.4-10.4); Platelet Count 277 10x3/uL (130-400); RBC Distribution Width 12.9 % (11.5-14.5); Red Blood Cell (RBC) Count 4.23 mill/uL (4.20-5.40)
[2024-10-23 07:37] LABS: Chloride 107 mmol/L (98-107); Sodium 136 mmol/L (136-145)
[2024-10-23 07:56] LABS: ALT (SGPT) 25 U/L (8-55); AST (SGOT) 16 U/L (5-34); Alkaline Phosphatase 44 U/L (40-110); Anion Gap 11 mmol/L (10-20); BUN (Urea Nitrogen) 7 mg/dL (7.0-18.7); Bilirubin, Total 0.3 mg/dL (0.2-1.2); Calc. Creatinine Clearance 0 mL/min (70-130); Calcium 9.3 mg/dL (7.8-10.44); Carbon Dioxide 21 mmol/L (22-29); Estimated GFR 114; Globulin 3.4 g/dL (2.4-3.5); Glucose 103 mg/dL (70-105); Protein, Total 7.4 g/dL (6.0-8.3)
[2024-10-23 08:50] LABS: Bacteria/HPF None Seen HPF (None Seen); Bilirubin Negative (Negative); Blood, Urine 2+ (Negative); CAUTI Indications for Culture Pregnancy; Clarity Clear (Clear); Glucose, Urine (Dipstick) Normal (Negative); Ketone, Urine Negative (Negative); Leukocyte Negative Leu/uL (Negative); Nitrite Negative (Negative); Protein, Urine (Dipstick) Negative (Neg-Trace); Specific Gravity, Urine 1.007 (1.002-1.036); Squamous Epithelial 0-3 HPF (0-3); Urobilinogen Normal mg/dL (Less than 2); WBC/HPF 0-3 HPF (0-3); pH, Urine 6.5 (5.0-9.0)
[2024-10-23 08:51] LABS: Urine Culture Reflex Yes Yes
== END 2024-10-23 09:56 | disposition home or self-care (01) ==
LOC: ERS 06:16
DX: O26.851 Spotting complicating pregnancy, first trimester (principal); O10.911 Unspecified pre-existing hypertension complicating pregnancy, first trimester; Z3A.10 10 weeks gestation of pregnancy
CPT/HCPCS: 36415; 76856; 80053; 81001; 84702; 85025; 86900; 86901; 87086